=== PATIENT | male | born 2000 | race Caucasian/White ===

== ENCOUNTER 2021-12-12 09:22 | Emergency (ER) | payer SELFPAY ==
[~2021-12-12] VITALS: Ht 182.9 cm; Wt 123.0 kg
--- NOTE | 2021-12-12 10:38 | PHYS DOC ---
Past Medical History Past Medical History: No Pertinent History Past Surgical History: No Surgical History Smoking Status: Never Smoker Alcohol Use: None Drug Use: None General Adult EDM: Chief Complaint: SORE THROAT HPI: HPI: Patient is a 21-year-old male that presents today with sore throat. Patient states that for approximately 1 week he has had increased throat pain and swelling in his tonsils, he presents today because a friend of his has a peritonsillar abscess and he was concerned with that. Patient states that he has been running a fever but he is unsure of how high it was, he states that as a child he has had strep throat but nothing recently. Review of Systems: Review of Systems: Constitutional: Denies fever or chills. [] Eyes: Denies change in visual acuity. [] HENT: sore throat. [] Respiratory: Denies cough or shortness of breath. [] Cardiovascular: Denies chest pain or edema. [] GI: Denies abdominal pain, nausea, vomiting, bloody stools or diarrhea. [] : Denies dysuria. [] Musculoskeletal: Denies back pain or joint pain. [] Integument: Denies rash. [] Neurologic: Denies headache, focal weakness or sensory changes. [] Endocrine: Denies polyuria or polydipsia. [] Lymphatic: Denies swollen glands. [] Psychiatric: Denies depression or anxiety. [] Heart Score: C/O Chest Pain: No Risk Factors: Risk Factors: DM, Current or recent (<one month) smoker, HTN, HLP, family history of CAD, obesity. Risk Scores: Score 0 - 3: 2.5% MACE over next 6 weeks - Discharge Home Score 4 - 6: 20.3% MACE over next 6 weeks - Admit for Clinical Observation Score 7 - 10: 72.7% MACE over next 6 weeks - Early Invasive Strategies Physical Exam: PE: Constitutional: Well developed, well nourished, no acute distress, non-toxic appearance. [] HENT: Normocephalic, atraumatic, unable to view tympanic membranes due to large amount of wax in his ears, tonsils are swollen at 3+, no exudate noted pain noted with palpation of the throat. Eyes: PERRLA, EOMI, conjunctiva normal, no discharge. [] Neck: Normal range of motion, no tenderness, supple, no stridor. [] Cardiovascular:Heart rate regular rhythm, no murmur [] Lungs & Thorax: Bilateral breath sounds clear to auscultation [] Abdomen: Bowel sounds normal, soft, no tenderness, no masses, no pulsatile masses. [] Skin: Warm, dry, no erythema, no rash. [] Back: No tenderness, no CVA tenderness. [] Extremities: No tenderness, no cyanosis, no clubbing, ROM intact, no edema. [] Neurologic: Alert and oriented X 3, normal motor function, normal sensory function, no focal deficits noted. [] Psychologic: Affect normal, judgement normal, mood normal. [] Current Patient Data: Labs: Laboratory Tests Test 12/12/21 11:15 Group A Streptococcus Rapid Negative Current Medications Medications (Trade) Dose Ordered Sig/Nick Route PRN Reason Start Time Stop Time Status Last Admin Dose Admin Dexamethasone (Decadron) 10 mg 1X ONCE PO 12/12/21 11:30 12/12/21 11:31 DC 12/12/21 11:30 EKG: EKG: [] Radiology/Procedures: Radiology/Procedures: [] Course & Med Decision Making: Course & Med Decision Making Pertinent Labs and Imaging studies reviewed. (See chart for details) 1155 reassessment of patient shows she continues to have sore throat and swollen tonsils, will treat him for bacterial for pharyngitis since his symptoms have been ongoing for a week, I did offer the patient an IM injection of Bicillin and he has declined at this time he would rather take oral antibiotics. Patient is encouraged to return to the emergency department if he is unable to control his saliva, he has increased work of breathing, or fever that is not controlled with Tylenol and/or ibuprofen. [place] Disclaimer: Kee Disclaimer: This electronic medical record was generated, in whole or in part, using a voice recognition dictation system. Departure Departure Impression: Primary Impression: Pharyngitis Qualified Codes: J02.9 - Acute pharyngitis, unspecified Disposition: HOME / SELF CARE / HOMELESS Condition: STABLE Referrals: NON,STAFF (PCP) Patient Instructions: Viral and Bacterial Pharyngitis Additional Instructions: Amoxicillin 500 mg take 1 tablet twice daily for 10 days [id number] Tylenol and/or ibuprofen as needed for fever and pain Throat lozenges to help with localized pain relief Follow-up with your primary care physician or one of the listed clinics below for further evaluation and management of your throat pain if not relieved in 10 days Return here to the emergency department for increased throat pain, inability to control saliva, increased shortness of breath, or bluing of your face and lips. Noel [facility] [address] [place] [address] [facility] [address] [place] [address] [facility] [address] 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
[2021-12-12 10:50] VITALS: BP 145/85
[2021-12-12] MEDS ORDERED: DEXAMETHASONE 4 MG TABLET PO ONE (11:30)
[2021-12-12] MEDS ORDERED: AMOX500C PO (12:02)
== END 2021-12-12 12:16 | disposition home or self-care (01) ==
LOC: ER 09:22
DX: J02.9 Acute pharyngitis, unspecified (principal)
CPT/HCPCS: 87070; 87880; 99283